=== PATIENT | male | born 1980 | race Caucasian/White ===

== ENCOUNTER 2018-12-03 22:53 | Emergency (ER) | payer BC, OTHER ==
--- OUTSIDE RECORDS SUMMARY | 2018-12-03 23:04 | XMS REPORT | Summary of Care ---
:1980 Author Organization [facility] Address [address] [address] Care Team Providers Name Role Phone Ada Gonzalez Primary Care Provider Reason for Visit Reason Comments Medication Refill Needs refills on all meds Referral ENT, c/o white spot on uluva Encounter Details Date Type Department Care Team Description 11/25/2018 Office Visit [place] [facility] Ada Gonzalez MD BMI 34.0-34.9,adult (Primary Dx); Medicine [address] Tinea cruris; [address] [place] [address] Erectile dysfunction, unspecified erectile dysfunction type; [place] [address] Psoriatic arthritis (HCC); [phone] Lipid disorder Allergies No Known Allergiesdocumented as of this encounter (statuses as of 11/25/2018) Medications Medication Sig Dispensed Refills Start Date End Date Status nystatin-triamcin 1 Appl by 15 g 2 11/25/2018 Active olone (MYCOLOG) Topical route 012813-7.1 TWICE DAILY. UNIT/GM-% Apply externally CreamIndications: Tinea cruris Sildenafil Take 1-2 Tabs 15 Tab 3 11/25/2018 Active Citrate 50 MG by mouth Oral DAILY TabIndications: NEEDED (ED). Erectile dysfunction, unspecified erectile dysfunction type tramadol (ULTRAM) Take 1-2 Tabs 240 Tab 5 11/25/2018 Active 50 MG Oral by mouth TabIndications: EVERY SIX Psoriatic HOURS arthritis (HCC) NEEDED (pain). Max Daily Amount: 400 mg. tramadol (ULTRAM) Take 1-2 Tabs 240 Tab 0 08/09/2018 Discontinued 50 MG Oral by mouth 9 (Reorder) TabIndications: EVERY SIX Psoriatic HOURS arthritis (HCC) NEEDED (pain). Max Daily Amount: 400 mg. Sildenafil Take 1-2 Tabs 15 Tab 3 08/09/2018 Discontinued Citrate 50 MG by mouth 9 (Reorder) Oral DAILY TabIndications: NEEDED (ED). Erectile dysfunction, unspecified erectile dysfunction type nystatin-triamcin 1 Appl by 15 g 2 08/09/2018 Discontinued olone (MYCOLOG) Topical route 9 (Reorder) 597964-7.1 TWICE DAILY. UNIT/GM-% Apply externally CreamIndications: Tinea cruris tramadol (ULTRAM) TAKE 1 TO 2 60 Tab 0 10/20/2018 Discontinued 50 MG Oral TABLETS BY 9 TabIndications: MOUTH EVERY 6 Psoriatic HOURS arthritis (HCC) NEEDED FOR PAIN -- MAXIMUM DAILY DOSE OF 8 TABLETS PER DAY tramadol (ULTRAM) Take 1-2 Tabs 240 Tab 0 11/25/2018 Discontinued 50 MG Oral by mouth 9 (Reorder) TabIndications: EVERY SIX Psoriatic HOURS arthritis (HCC) NEEDED (pain). Max Daily Amount: 400 mg. 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 General patient education discussion including: obesity-related excess mortality. Colitis 10/13/2011 Headache(784.0) 07/01/2011 Hemorrhoid 05/16/2011 Psoriasis 04/20/2011 Overview: Sees Dr Mancuso documented as of this encounter (statuses as of 11/25/2018) Resolved Problems Problem Noted Date Resolved Date History for Chronic Ear Infection 12/12/2007 04/20/2011 Overview: Patient gets excessive wax buildup. Had perforation of left tympanic membrane, 01/2004. Obesity (BMI 30-39.9) 12/12/2007 05/16/2011 Overview: 10/01/2006, BMI: 31.46 Replaced inactive diagnosis Eczema of Legs 12/12/2007 04/20/2011 documented as of this encounter (statuses as of 11/25/2018) Social History Tobacco Use Types Packs/Day Years Used Date Former Smoker Smokeless Tobacco: Never Used Alcohol Use Drinks/Week oz/Week Comments Yes 2 Standard drinks or equivalent 2.0 Sex Assigned at Date Recorded Not on file Job Start Date Occupation Industry Not on file Not on file Not on file Travel History Travel Start Travel End No recent travel history available. documented as of this encounter Last Filed Vital Signs Vital Sign Reading Time Taken Comments Blood Pressure 138/72 11/25/2018 10:10 AM EDT Pulse 67 11/25/2018 10:10 AM EDT Temperature - - Respiratory Rate - - Oxygen Saturation 96% 11/25/2018 10:10 AM EDT Inhaled Oxygen Concentration - - Weight 116.3 kg (256 lb 8 oz) 11/25/2018 10:10 AM EDT Height 182.9 cm (6') 11/25/2018 10:10 AM EDT Body Mass Index 34.79 11/25/2018 10:10 AM EDT documented in this encounter Patient Instructions Patient InstructionsAda Gonzalez MD - 11/25/2018 10:00 AM EDTFor pain control - \\consider adding actetamonphen for pain reduction - 4 gram / day ok - Weight loss is in the calories Most important technique - WRITE IT DOWN Etools - Free websites loseit Fatsecret Myfitnesspal Sparkpeople fooducate Multiple effective diets- I favor the low carb diet- Cut out bread/ rice/ potatoes/pasta -etc. Eat meals with lean protein (meat/ fish/ chicken/ low fat cheese) and salad- Fruit is good but in moderation No fruit juice or sweetened sodas/ drinks- documented in this encounter Progress Notes Ada Gonzalez MD - 11/25/2018 10:00 AM EDT NAME:Jacques Huang 1980: 1980 ENC Date: 11/25/2018 CC: Chief Complaint Patient presents with Medication Refill Needs refills on all meds Referral ENT, c/o white spot on david Huang is a 38-y.o. male not seen this yr- Annual review 1. Psoriatic arthritis - Using CBD oil- farms a pure product - - has been able to cut back on nsaid / tramadol - Has been out of Tramadol for the last month - Gets better pain relief with tramadol But is not addicted - 2. Has gained weight - Not as active - Discussed import of weight management - Current Outpatient Medications Medication Sig nystatin-triamcinolone (MYCOLOG) 233938-0.1 UNIT/GM-% Apply externally Cream 1 Appl by Topical route TWICE DAILY. Sildenafil Citrate 50 MG Oral Tab Take 1-2 Tabs by mouth DAILY NEEDED (ED). tramadol (ULTRAM) 50 MG Oral Tab Take 1-2 Tabs by mouth EVERY SIX HOURS NEEDED (pain). MaxDaily Amount: 400 mg. No current facility-administered medications for this visit. 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 General patient education discussion including: obesity-related excess mortality. Colitis 10/13/2011 Headache(784.0) 07/01/2011 Hemorrhoid 05/16/2011 Psoriasis 04/20/[address] Mancuso Family History Problem Relation Age of Onset Heart Father [place] Diabetes Father No cardiopulmonary symptoms No upper or lower GI complaints No urinary tract symptoms. No bruising/ bleeding. No neurological complaints . No insomnia.+ . Social History Tobacco Use Smoking status: Former Smoker Smokeless tobacco: Never Used Substance Use Topics Alcohol use: Yes Alcohol/week: 2.0 standard drinks Types: 2 Standard drinks or equivalent per week Drug use: No Lab Results Component Value Date WBC 5.74 11/25/2018 HGB 17.5 11/25/2018 HCT 49.0 11/25/2018 PLAT 270 11/25/2018 OBJECTIVE: BP 138/72 (BP Location: Right arm, Patient Position: Sitting) | Pulse 67 | Ht 6' (1.829 m) | Wt 256 lb 8 oz (116.3 kg) | SpO2 96% | BMI 34.79 kg/m . Lungs Clear CV rrr Abd soft, nontender, no organomegaly Ext no edema; no lesions; pulses intact Neuro: intellect intact ; motor including gait unremarkable A/P ICD-9-CM ICD-10-CM 1. BMI 34.0-34.9,adult V85.34 Z68.34 2. Tinea cruris 110.3 B35.6 nystatin-triamcinolone (MYCOLOG) 743476-4.1 UNIT/GM- % Apply externally Cream 3. Erectile dysfunction, unspecified erectile dysfunction type 607.84 N52.9 Sildenafil Citrate 50 MGOral Tab 4. Psoriatic arthritis ([facility]) 696.0 L40.50 CBC WITH DIFFERENTIAL COMPREHENSIVE METABOLIC PANEL tramadol (ULTRAM) 50 MG Oral Tab COMPREHENSIVE METABOLIC PANEL CBC WITH DIFFERENTIAL DISCONTINUED: tramadol (ULTRAM) 50 MG Oral Tab 5. Lipid disorder 272.9 E78.9 LIPID PROFILE LIPID PROFILE Patient Instructions For pain control - \\consider adding actetamonphen for pain reduction - 4 gram / day ok - Weight loss is in the calories Most important technique - WRITE IT DOWN Etools - Free websites loseit [employer]itness[employer] fooducate Multiple effective diets- I favor the low carb diet- Cut out bread/ rice/ potatoes/pasta -etc. Eat meals with lean protein (meat/ fish/ chicken/ low fat cheese) and salad- Fruit is good but in moderation No fruit juice or sweetened sodas/ drinks- AUTHOR: Ada Gonzalez MD 18:39 11/25/2018 documented in this encounter Plan of Treatment Name Type Priority Associated Diagnoses Date/Time COMPREHENSIVE METABOLIC Lab Routine Psoriatic arthritis 11/25/2018 11:32 AM PANEL ([facility]) EDT LIPID PROFILE Lab Routine Lipid disorder 11/25/2018 11:32 AM EDT Name Type Priority Associated Diagnoses Order Schedule COMPREHENSIVE METABOLIC Lab Routine Psoriatic arthritis Expected: 2018 PANEL (HCC) (Approximate), Expires: 05/24/2019 LIPID PROFILE Lab Routine Lipid disorder Expected: 11/25/2018 (Approximate), Expires: 05/24/2019 Health Maintenance Due Date Last Done Comments DIABETES SCREENING 1996 LIPID DISORDER SCREENING 1996 INFLUENZA VACCINE (#1) 2018 DEPRESSION SCREENING 11/26/2019 11/25/2018 HPV IMMUNIZATION SERIES Aged Out No longer eligible based on patient's age to complete this topic MENINGOCOCCAL VACCINE IMM Aged Out No longer eligible based on patient's age to complete this topic PNEUMOCOCCAL 0-64 YRS Aged Out No longer eligible based on patient's age to complete this topic documented as of this encounter Procedures Procedure Name Priority Date/Time Associated Comments Diagnosis CBC WITH DIFFERENTIAL Routine 11/25/2018 11:32 Psoriatic arthritis Results for this AM EDT ([facility]) procedure are in the results section. documented in this encounter Results CBC WITH DIFFERENTIAL (11/25/2018 11:32 AM EDT) WBC Count 5.74 4.23 - 9.07 K/uL [facility] RBC Count 5.38 4.30 - 5.89 M/UL [facility] Hemoglobin 17.5 13.7 - 17.5 g/dL [facility] Hematocrit 49.0 40.1 - 51.0 % [facility] MCV 91.1 79.0 - 92.2 FL [facility] MCH 32.5 (H) 25.7 - 32.2 PG [facility] MCHC 35.7 32.3 - 36.5 g/dL [facility] Platelet Count 270 163 - 337 K/uL [facility] MPV 10.1 9.4 - 12.4 FL [facility] RDW 11.6 11.6 - 14.4 % [facility] Neutrophil % 50.6 34.0 - 67.9 % [facility] Lymphocyte % 32.4 21.8 - 53.1 % [facility] Monocyte % 9.9 5.3 - 12.2 % [facility] Eosinophil % 5.2 0.8 - 7.0 % [facility] Basophil % 1.0 0.2 - 1.2 % [facility] nRBC % 0.0 0.0 - 0.2 % [facility] Neutrophil # 2.90 1.78 - 5.38 K/UL [facility] Lymphocyte # 1.86 1.32 - 3.57 K/UL [facility] Monocyte # 0.57 0.30 - 0.82 K/UL [facility] Eosinophil # 0.30 0.04 - 0.54 K/UL [facility] Basophil # 0.06 0.01 - 0.08 K/UL [facility] Immature Gran % 0.9 (H) 0.0 - 0.4 % [facility] Immature Gran # 0.05 (H) 0.00 - 0.03 K/uL [facility] NRBC # 0.00 0.00 - 0.12 K/uL [facility] Specimen Blood - Blood specimen (specimen) Performing Organization Address City/State/[place] [facility] Phone Number [facility] [address] [id number] documented in this encounter Visit Diagnoses Diagnosis BMI 34.0-34.9,adult - Primary Body Mass Index 34.0-34.9, adult Tinea cruris Dermatophytosis of groin and perianal area Erectile dysfunction, unspecified erectile dysfunction type Psoriatic arthritis (HCC) Psoriatic arthropathy Lipid disorder Unspecified disorder of lipoid metabolism documented in this encounter Guarantor Name Account Type Relation to Date of Phone Billing Patient Address Jacques Huang Personal/Family 1980 [address] (Home) [address] [place], [place] (Work) [id number] documented as of this encounter Advance Directives Type Date Recorded Patient Packaging Assembler Explanation Advance Directives 05/12/2017 3:27 PM [employer] responsibility acknowledgement form"
[2018-12-03] MEDS ORDERED: NS 0.9% 1000 ML** 1,000 ML IV ONE (23:25)
[2018-12-03] MEDS ORDERED: Ondansetron INJ* 2 MG/ML VIAL IV ONE (23:25)
[2018-12-03] MEDS ORDERED: Morphine 4 MG/ML VIAL (1 ml) 4 MG/ML VIAL IV ONE (23:26)
--- NOTE | 2018-12-03 23:31 | ED ---
Abdominal Pain/Male - HPI Summary HPI Summary: Patient complains of left lower quadrant pain radiating to left side groin 2 days, pain worse today. Patient denies fever, cough, sore throat, CP, SOB, N/V/ V change in urine, change in BM, penile symptoms. Medical history is none. History of prior kidney stones, colitis. Abdominal surgical history is none. - History of Current Complaint Chief Complaint: EDAbdPain Stated Complaint: ABD PAIN PER PT Time Seen by Provider: 12/03/18 23:22 Hx Obtained From: Patient Onset/Duration: Sudden Onset Timing: Lasting Hours Severity Initially: Severe Severity Currently: Severe Pain Intensity: 9 Pain Scale Used: 0-10 Numeric Location: Discrete At: LLQ Radiates: Yes Radiates to: Inguinal Character: Sharp Aggravating Factor(s): Nothing Alleviating Factor(s): Nothing Associated Signs And Symptoms: Positive: Negative - Allergies/Home Medications Allergies/Adverse Reactions: Allergies Allergy/AdvReac Type Severity Reaction Status Date / Time No Known Allergies Allergy Verified 12/03/18 22:56 PMH/Surg Hx/FS Hx/Imm Hx Endocrine/Hematology History: Denies: Hx Anticoagulant Therapy Cardiovascular History: Denies: Hx Pacemaker/ICD, Other Cardiovascular Problems/Disorders Respiratory History: Denies: Other Respiratory Problems/Disorders GI History: Reports: Other GI Disorders - COLITIS 2 YEARS AGO Musculoskeletal History: Reports: Hx Arthritis - SORIATIC ARTHRITIS Sensory History: Reports: Hx Contacts or Glasses - GLASSES Denies: Hx Hearing Aid Opthamlomology History: Reports: Hx Contacts or Glasses - GLASSES Neurological History: Reports: Hx Headaches - R/T ARTHRITIS Denies: Other Neuro Impairments/Disorders - Surgical History Hx Anesthesia Reactions: No Infectious Disease History: No Infectious Disease History: Denies: Traveled Outside the [place] in Last 30 Days - Family History Known Family History: Positive: Non-Contributory - Social History Alcohol Use: Occasionally Alcohol Amount: 10 DRINKS A MONTH Substance Use Type: Reports: None Smoking Status (MU): Never Smoked Tobacco Amount Used/How Often: PACK A DAY Review of Systems Constitutional: Negative Eyes: Negative ENT: Negative Cardiovascular: Negative Respiratory: Negative Positive: Abdominal Pain Genitourinary: Negative Musculoskeletal: Negative Skin: Negative Neurological: Negative Psychological: Normal All Other Systems Reviewed And Are Negative: Yes Physical Exam - Summary Physical Exam Summary: Tenderness left lower quadrant and suprapubically. Normal exam and genitals. Triage Information Reviewed: Yes Vital Signs On Initial Exam: Initial Vitals Temp Pulse Resp BP Pulse Ox 97.4 F 66 18 135/97 100 12/03/18 22:54 12/03/18 22:54 12/03/18 22:54 12/03/18 22:54 12/03/18 22:54 Vital Signs Reviewed: Yes Appearance: Positive: Well-Appearing Skin: Positive: Warm Head/Face: Positive: Normal Head/Face Inspection Eyes: Positive: Normal Neck: Positive: Supple Respiratory/Lung Sounds: Positive: Clear to Auscultation Cardiovascular: Positive: Normal Abdomen Description: Positive: Other: Musculoskeletal: Positive: Normal Neurological: Positive: Normal Psychiatric: Positive: Normal AVPU Assessment: Alert - [place] Coma Scale Best Eye Response: 4 - Spontaneous Best Motor Response: 6 - Obeys Commands Best Verbal Response: 5 - Oriented Coma Scale Total: 15 Procedures - Sedation Patient Received Moderate/Deep Sedation with Procedure: No Diagnostics - Vital Signs Vital Signs Temp Pulse Resp BP Pulse Ox 12/03/18 22:54 97.4 F 66 18 135/97 100 - Laboratory Result Diagrams: 12/03/18 23:42 12/03/18 23:42 Lab Statement: Any lab studies that have been ordered have been reviewed, and results considered in the medical decision making process. Abdominal Pain Male Course/Dx - Course Course Of Treatment: Patient complains of left lower quadrant pain radiating to left side groin 2 days, pain worse today. Patient denies fever, cough, sore throat, CP, SOB, N/V/V change in urine, change in BM, penile symptoms. Medical history is none. History of prior kidney stones, colitis. Abdominal surgical history is none. Vital signs within normal limits. Creatinine 1.6. 1 L normal saline given. Labs otherwise unremarkable. CT abdomen and pelvis positive for 4 mm kidney stone near left UVJ. Mild left hydronephrosis. Patient will be discharged home with pain control. Patient understands and approves of plan. - Diagnoses Provider Diagnoses: Kidney stone on left side Discharge ED - Sign-Out/Discharge Documenting (check all that apply): Patient Departure - Discharge Plan Condition: Stable Disposition: HOME Prescriptions: Oxycodone HCl 5 mg PO Q6H 3 Days #12 tablet MDD 4 tabs Patient Education Materials: Kidney Stones (ED) Referrals: Ada Gonzalez MD [Primary Care Provider] - Holden Klein MD [Medical Doctor] - Additional Instructions: Take oxycodone as directed if needed for pain. Take ibuprofen in addition for pain. Drink plenty of water to maintain hydration and help flush stone. Follow -up with urologist Dr. Klein symptoms do not improve. Return to the ED for any worsening symptoms. - Billing Disposition and Condition Condition: STABLE Disposition: Home
[2018-12-03] MEDS ORDERED: HYDROmorphone INJ* 0.5 MG/0.5 ML SYRINGE IV ONE (23:48)
[2018-12-04 00:02] LABS: ABS Basophils 0.1 10^3/ul (0-0.2); ABS Eosinophils 0.3 10^3/ul (0-0.6); ABS Lymphocytes 2.3 10^3/ul (1.0-4.8); ABS Monocytes 0.8 10^3/ul (0-0.8); ABS Neutrophils 5.3 10^3/ul (1.5-7.7); Eosinophil % 3.1 %; Hematocrit 48 % (42-52); Hemoglobin 16.7 g/dL (14.0-18.0); Lymphocyte % 26.1 %; Mean Corpuscular HGB Conc 35 g/dL (31-36); Mean Corpuscular Hemoglobin 33 pg (27-31); Mean Corpuscular Volume 93 fL (80-94); Mean Platelet Volume 7.9 fL (7.4-10.4); Nucleated Red Blood Cells % 0.1; Platelet Count 242 10^3/uL (150-450); Red Blood Count 5.14 10^6 /uL (4.18-5.48); Red Cell Distribution Width 12 % (10-15); White Blood Count 8.7 10^3/uL (3.5-10.8)
[2018-12-04 00:18] LABS: Albumin 4.5 g/dL (3.2-5.2); BUN/Creatinine Ratio 14.3 (8-20); C Reactive Protein 1.57 mg/L (<8.01); Calcium 9.5 mg/dL (8.6-10.3); EGFR African American 67.9 (>60); EGFR Non-African American 56.1 (>60); Globulin 2.3 g/dL (2-4); Potassium 3.8 mmol/L (3.5-5.0); Total Bilirubin 0.5 mg/dL (0.2-1.0); Total Protein 6.8 g/dL (6.4-8.9)
[2018-12-04] MEDS ORDERED: Iodixanol* (CONTRAST) 320 MG/ML 100 ML SDV IV ONE (00:24)
[2018-12-04] MEDS ORDERED: fentaNYL* 50 MCG/ML 2 ML VIAL (100 MCG VIAL) IV SLOW PU ONE (01:27)
[2018-12-04 03:09] VITALS: BP 98/76
[2018-12-04 03:48] LABS: Urine Appearance Clear; Urine Bacteria Absent (Absent); Urine Bilirubin Negative (Negative); Urine Blood 3+ (Negative); Urine Color Yellow; Urine Glucose Negative (Negative); Urine Ketones Trace (Negative); Urine Nitrite Negative (Negative); Urine Protein Negative (Negative); Urine Red Blood Cell 3+(>10/hpf) (Absent); Urine Specific Gravity > 1.060 (1.010-1.030); Urine Urobilinogen Negative (Negative); Urine White Blood Cell Absent (Absent)
== END 2018-12-04 02:52 | disposition home or self-care (01) ==
LOC: ED 22:53
DX: N13.2 Hydronephrosis with renal and ureteral calculous obstruction (principal)
CPT/HCPCS: 36415; 74177; 76870; 80053; 81003; 81015; 83605; 83690; 85025; 86140; 93005; 96361; 96374; 96375; 99284; J1170; J2270; J2405; J3010; Q9967